=== PATIENT | female | born 1950 | race Caucasian/White ===

== ENCOUNTER 2016-12-31 16:59 | Observation (INO) | payer MEDICARE, OTHER ==
[~2016-12-31] VITALS: Ht 170.2 cm; Wt 121.4 kg
[2016-12-31] MEDS ORDERED: WELLBUTRIN SR150 M2 PO (17:17)
[2016-12-31] MEDS ORDERED: TRAZODONE HCL150 M1 PO (17:17)
[2016-12-31] MEDS ORDERED: PROZAC20 M3 PO (17:19)
[2016-12-31] MEDS ORDERED: HTN MED (17:19)
[2016-12-31] MEDS ORDERED: VYVANSE20 M1 PO (17:19)
[2016-12-31] MEDS ORDERED: ATIVAN0.5 M1 PO (17:20)
[2016-12-31 17:49] LABS: BASO % 0.6 % (0-2); EOS % 4.8 % (0-7); EOSINOPHIL ABSOLUTE COUNT 0.3 tho/cmm (0.0-0.7); HCT-HEMATOCRIT 41.9 % (34.0-49.0); HGB-HEMOGLOBIN 14.2 gm/dl (12.0-15.5); IMMATURE GRANULOCYTES ABSOLUTE 0.03 tho/cmm (0-0.03); IMMATURE GRANULOCYTES PERCENT 0.4 % (0-0.3); LYMPH % 21.4 % (20-45); LYMPH ABSOLUTE COUNT 1.5 tho/cmm (0.8-4.5); MCH (MEAN CORPUSCULAR HGB) 32.5 pg (28.0-32.0); MCHC MEAN CORPUSCULAR HGB CONC 33.9 % (32.0-36.0); MCV (MEAN CELL VOLUME) 95.9 fl (82.0-96.0); MONO % 13.2 % (0-12); MONOCYTE ABSOLUTE COUNT 0.9 tho/cmm (0.0-1.2); NEUTROPHIL ABSOLUTE COUNT 4.2 tho/cmm (1.6-8.0); NEUTROPHIL-AUTOMATED 4.2 tho/cmm (1.6-8.0); NEUTROPHILS % 59.6 % (40-80); PLATELET COUNT 207 tho/cmm (150-450); RED BLOOD COUNT 4.37 mil/cmm (4.00-5.20); RED CELL DISTRIBUTION WIDTH 13.3 % (12.4-16.4)
[2016-12-31 17:56] LABS: PROTHROMBIN TIME 12.1 SECONDS (9.0-13.6)
[2016-12-31 18:47] LABS: ALB/GLOB RATIO 0.8 (0.8-2.0); ALBUMIN 3.2 g/dl (3.5-5.0); ALKALINE PHOSPHATASE 114 U/L (33-138); ALT/SGPT 20 U/L (12-78); AMYLASE 43 U/L (20-90); ANION GAP 9 mmol/L (0-20); AST/SGOT 16 U/L (10-40); BILIRUBIN,TOTAL 0.5 mg/dl (0-1.5); BLOOD UREA NITROGEN 17 mg/dl (6-24); CALCIUM 9.4 mg/dl (8.5-10.5); CARBON DIOXIDE-VENOUS 30 mmol/L (22-32); CHLORIDE 108 mmol/l (96-110); CREATININE 0.74 mg/dl (0.50-1.10); GLUCOSE 100 mg/dL (70-110); LIPASE 115 U/L (73-393); POTASSIUM 4.2 mmol/L (3.7-5.1); SODIUM 143 mmol/L (135-145); eGFR VALUE FOR BLACK >90 mL/Min
[2016-12-31] MEDS ORDERED: cymbalta (20:21)
[2017-01-01 09:33] LABS: URINE BILIRUBIN NEGATIVE (NEG); URINE BLOOD NEGATIVE (NEG); URINE GLUCOSE (UA) NEGATIVE (NEG); URINE KETONE NEGATIVE (NEG); URINE LEUKOCYTE ESTERASE POSITIVE (NEG); URINE NITRITE NEGATIVE (NEG); URINE PH 6.5 (5.0-8.0); URINE PROTEIN NEGATIVE (NEG); URINE SPECIFIC GRAVITY 1.015 (1.003-1.030)
[2017-01-01 09:35] LABS: URINE APPEARANCE CLEAR; URINE COLOR YELLOW
[2017-01-01 09:48] LABS: URINE EPITHELIAL CELLS 0-2 /[HPF] (0-10); URINE MUCUS 1+; URINE RBC 0 /[HPF] (0-5)
== END 2017-01-01 16:16 ==
LOC: EDMED 16:59 → EMR2 21:04 → CAR1 22:45
PROVIDERS: Emergency Medicine; ADMIT Internal Medicine
DX: T43.291A Poisoning by other antidepressants, accidental (unintentional), initial encounter (principal); F32.9 Major depressive disorder, single episode, unspecified; F41.9 Anxiety disorder, unspecified; I10 Essential (primary) hypertension; G47.00 Insomnia, unspecified; E66.9 Obesity, unspecified; Z98.890 Other specified postprocedural states; Z79.899 Other long term (current) drug therapy
CPT/HCPCS: G0378; J2060; J7030